=== PATIENT | female | born 1970 | race Caucasian/White ===

== ENCOUNTER 2022-08-30 10:15 | Day surgery (SDC) | payer OTHER ==
[~2022-08-30] VITALS: Ht 157.5 cm; Wt 79.5 kg
[2022-08-30] MEDS ORDERED: TRAM50 PO (10:38)
[2022-08-30] MEDS ORDERED: TRAZ50 PO (10:39)
[2022-08-30] MEDS ORDERED: Prinivil10 MG PO (10:39)
[2022-08-30] MEDS ORDERED: ZOLOFT25 MG PO (10:39)
[2022-08-30] MEDS ORDERED: Methocarbamol750 MG PO (10:39)
--- NOTE | 2022-08-30 10:50 | NUR ---
08/30/22 1050 Teresa Jauregui PT RESTING COMFORTABLY IN BED. CALL LIGHT WITHIN REACH. BED IN LOWEST POSITION. SIDE RAILS UP. NO QUESTIONS OR CONCERNS AT THIS TIME
[2022-08-30 12:31] VITALS: BP 123/87
--- NOTE | 2022-08-30 13:09 | NUR ---
08/30/22 1309 Calista Green IV REMOVED, SITE WNL
== END 2022-08-30 13:05 | disposition home or self-care (01) ==
LOC: ORSCSDS 10:15
PROVIDERS: Orthopaedic Surgery
PROC: 01N54ZZ Release Median Nerve, Percutaneous Endoscopic Approach (ICD-10-PCS; principal; 2022-08-30 11:30)
DX: G56.01 Carpal tunnel syndrome, right upper limb (principal); F41.9 Anxiety disorder, unspecified; F32.A Depression, unspecified; I10 Essential (primary) hypertension; M19.90 Unspecified osteoarthritis, unspecified site; F17.210 Nicotine dependence, cigarettes, uncomplicated; Z79.899 Other long term (current) drug therapy
CPT/HCPCS: J2250; J7120

== ENCOUNTER → 2023-02-13 | Outpatient (CLI) | payer OTHER ==
[~2023-02-13] MED LIST: Methocarbamol750 MG PO; Prinivil10 MG PO; TRAM50 PO; TRAZ50 PO; ZOLOFT25 MG PO
[2023-02-13 10:45] LABS: Adenovirus F 40/41 Not Detected (NOT DETECT); Astrovirus Not Detected (NOT DETECT); Campylobacter Sp Not Detected (NOT DETECT); Cryptosporidium Not Detected (NOT DETECT); Cyclospora Cayetanensis Not Detected (NOT DETECT); E. Coli O157 Not Detected (NOT DETECT); Entamoeba Histolytica Not Detected (NOT DETECT); Enteroaggregative E. coli-EAEC Not Detected (NOT DETECT); Enteropathogenic E. coli-EPEC Not Detected (NOT DETECT); Enterotoxigenic E. coli-ETEC Not Detected (NOT DETECT); Giardia Lamblia Not Detected (NOT DETECT); Norovirus GI/GII Not Detected (NOT DETECT); Plesiomonas Shigelloides Not Detected (NOT DETECT); Rotavirus A Not Detected (NOT DETECT); Salmonella Sp Not Detected (NOT DETECT); Sapovirus Not Detected (NOT DETECT); Shiga Toxin-prod E. coli-STEC Not Detected (NOT DETECT); Shigella/Enteroin E. coli-EIEC Not Detected (NOT DETECT); Vibrio Cholerae Not Detected (NOT DETECT); Vibrio Sp Not Detected (NOT DETECT); Yersinia Enterocolitica Not Detected (NOT DETECT)
[2023-02-15 16:09] LABS: FATS, NEUTRAL Normal (.); FATS, TOTAL Increased (.)
== END ==
LOC: LAB SHORT 06:45 → LAB 06:45
PROVIDERS: Family Medicine
DX: R19.7 Diarrhea, unspecified (principal)
CPT/HCPCS: 82705; 87507